=== PATIENT | female | born 1985 | race Caucasian/White ===

== ENCOUNTER 2019-03-07 18:48 | Emergency (ER) | payer OTHER ==
[~2019-03-07] VITALS: Ht 157.5 cm; Wt 70.5 kg
[2019-03-07 18:55] VITALS: Ht 157.5 cm; Wt 70.5 kg
[2019-03-07] MEDS ORDERED: LISINOPRIL-HCT1 EAC4 PO (18:56)
[2019-03-07] MEDS ORDERED: NORVASC5 MG PO (18:57)
[2019-03-07] MEDS ORDERED: LAMICTAL150 M1 PO (18:57)
[2019-03-07] MEDS ORDERED: EFFEXOR37.5 MG PO (18:57)
[2019-03-07] MEDS ORDERED: NEXIUM40 MG PO (18:58)
[2019-03-07] MEDS ORDERED: TRAZODONE HCL150 MG PO (18:58)
[2019-03-07 19:26] LABS: BASOPHILS 0.4 % (0-2); EOSINOPHILS 2.1 % (0-7); HEMATOCRIT 42.2 % (36.0-48.0); HEMOGLOBIN 14.4 g/dL (12-16); IMMATURE GRANULOCYTES 0.2 % (0-5); LYMPHOCYTES 31.6 % (15-50); MCH 36.6 pg (26.0-34.0); MCHC 34.1 g/dL (31.0-37.0); MCV 107.4 fL (80.0-100.0); MEAN PLATELET VOLUME 8.4 fL (7.4-10.4); MONOCYTES 5.3 % (2-11); NEUTROPHILS 60.4 % (40-80); PLATELET COUNT 382 10x3/uL (130-400); RBC 3.93 10x6/uL (4.00-5.40); RDW 15.1 % (11.5-14.5); WBC 12.6 10x3/uL (4.8-10.8)
[2019-03-07 19:34] LABS: APPEARANCE CLEAR (CLEAR); BILIRUBIN NEGATIVE (NEGATIVE); COLOR STRAW (YELLOW); GLUCOSE NEGATIVE (NEGATIVE); KETONE NEGATIVE (NEGATIVE); NITRITE NEGATIVE (NEGATIVE); PROTEIN NEGATIVE (NEGATIVE); UROBILINOGEN NORMAL (NORMAL)
[2019-03-07 19:35] LABS: UDS - AMPHET NEGATIVE QUAL (NEGATIVE); UDS - BARB NEGATIVE QUAL (NEGATIVE); UDS - BENZO NEGATIVE QUAL (NEGATIVE); UDS - COCAINE NEGATIVE QUAL (NEGATIVE); UDS - OPIATE NEGATIVE QUAL (NEGATIVE); UDS - PCP NEGATIVE QUAL (NEGATIVE); UDS - THC NEGATIVE QUAL (NEGATIVE)
[2019-03-07 19:37] LABS: BACTERIA FEW /hpf (NEGATIVE); EPITHELIAL CELLS 0-5 /hpf (0-5); RED CELLS - URINE 0-5 /hpf (0-5); WHITE CELLS - URINE NSEEN /hpf (NEGATIVE)
[2019-03-07 19:39] LABS: CALC OSMOLALITY 283 mosm/kg (275-300); CALCIUM 8.7 mg/dL (8.5-10.1); CARBON DIOXIDE 25.4 mmol/L (21.0-32.0); CHLORIDE - SERUM 104 mmol/L (98-107); CREATININE - SERUM 0.7 mg/dL (0.6-1.3); GLUCOSE 93 mg/dL (74-106); SODIUM 143 mmol/L (136-145); UREA NITROGEN 9 mg/dL (7-18); eGFR NON AFRICAN AMERICAN > 90 mL/min (90-120)
[2019-03-07 19:46] LABS: ALBUMIN 3.9 g/dL (3.4-5.0); ALKALINE PHOSPHATASE 62 U/L (30-120); ALT (SGPT) 33 U/L (10-68); BILIRUBIN - TOTAL 0.13 mg/dL (0.2-1.3); MAGNESIUM - SERUM 2.5 mg/dL (1.8-2.4)
--- NOTE | 2019-03-08 05:06 | NUR ---
DR VALDIVIA NOTIFIED AND REVIEWED PT's BEHAVIOR AND ASSESSMENT RESULTS. PT IS A LOW RISK PER DR VALDIVIA. DR VALDIVIA STATED TO GIVE RESOURCES TO PT AT TIME OF DISCHARGE. NO FURTHER ORDERS AT THIS TIME. RESOURCES REVIEWED WITH PT AND SHE VERBALIZED UNDERSTANDING.
[2019-03-08 06:42] VITALS: BP 130/77
== END 2019-03-08 06:44 ==
LOC: D.ER 18:48
PROVIDERS: Family Medicine
DX: F10.10 Alcohol abuse, uncomplicated (principal); Y90.8 Blood alcohol level of 240 mg/100 ml or more; F31.9 Bipolar disorder, unspecified; I10 Essential (primary) hypertension; F17.210 Nicotine dependence, cigarettes, uncomplicated

== ENCOUNTER 2019-03-22 14:30 | Inpatient (IN) | payer OTHER ==
[~2019-03-22] VITALS: Ht 157.5 cm; Wt 67.3 kg
[~2019-03-22 14:30] MED LIST: EFFEXOR37.5 MG PO; LAMICTAL150 M1 PO; LISINOPRIL-HCT1 EAC4 PO; NEXIUM40 MG PO; NORVASC5 MG PO; TRAZODONE HCL150 MG PO
[2019-04-09] MEDS ORDERED: PROAIR HFA8.5 G1 INH (13:12)
[2019-04-10 11:19] LABS: BASOPHILS 0.4 % (0-2); EOSINOPHILS 1.8 % (0-7); HEMATOCRIT 41.2 % (36.0-48.0); HEMOGLOBIN 14.1 g/dL (12-16); IMMATURE GRANULOCYTES 0.2 % (0-5); LYMPHOCYTES 35.1 % (15-50); MCH 35.5 pg (26.0-34.0); MCHC 34.2 g/dL (31.0-37.0); MCV 103.8 fL (80.0-100.0); MEAN PLATELET VOLUME 8.8 fL (7.4-10.4); MONOCYTES 5.6 % (2-11); NEUTROPHILS 56.9 % (40-80); PLATELET COUNT 332 10x3/uL (130-400); RBC 3.97 10x6/uL (4.00-5.40); RDW 12.7 % (11.5-14.5); WBC 10.5 10x3/uL (4.8-10.8)
[2019-04-10 11:27] LABS: CALC OSMOLALITY 274 mosm/kg (275-300); CALCIUM 9.6 mg/dL (8.5-10.1); CARBON DIOXIDE 26.5 mmol/L (21.0-32.0); CHLORIDE - SERUM 100 mmol/L (98-107); CREATININE - SERUM 0.8 mg/dL (0.6-1.3); GLUCOSE 97 mg/dL (74-106); POTASSIUM - SERUM 3.8 mmol/L (3.5-5.1); SODIUM 138 mmol/L (136-145); UREA NITROGEN 10 mg/dL (7-18); eGFR NON AFRICAN AMERICAN 89 mL/min (90-120)
[2019-04-10 11:28] LABS: APTT 25.2 SECONDS (22.8-39.4); INR 0.89 (0.85-1.17)
[2019-04-10 14:08] LABS: BILIRUBIN NEGATIVE (NEGATIVE); GLUCOSE NEGATIVE (NEGATIVE); KETONE NEGATIVE (NEGATIVE); NITRITE NEGATIVE (NEGATIVE); UROBILINOGEN NORMAL (NORMAL)
[2019-04-15] VITALS (12 sets, daily range): BP systolic 93–133; BP diastolic 49–71; Ht 157.5 cm; Wt 67.3 kg
[2019-04-15 10:11] LABS: HCG URINE NEGATIVE (NEGATIVE)
--- NOTE | 2019-04-15 10:30 | NUR ---
VOIDED 800CC CLEAR YELLOW URINE USING URINAL. DENIES NEEDS.
--- NOTE | 2019-04-15 13:38 | NUR ---
PT SITTING UP IN BED WITH HOB ELEVATED. ALERT AND ORIENTED. O2 AT 2L VIA NC. MOTHER AT BEDSIDE. PT STATES SHE HAS NO FURTHER NEEDS AT THIS TIME. VS STABLE. WILL CONTINUE TO MONITOR. BED LOW. CL IN REACH.
--- NOTE | 2019-04-15 16:09 | MORECARE ---
CASE MANAGEMENT DISCHARGE SUMMARY PATIENT: LORETTA NOLASCO UNIT: [id number] ADM DATE: 04/15/19 AGE: 33 : 87 SEX: F ROOM/BED: D.1212 AUTHOR: SOBIA DAVILA PHYSICIAN: REFERRING PHYSICIAN: BARON PETERS MD DATE OF SERVICE: 04/15/19 Discharge Plan Patient Name: LORETTA NOLASCO [facility] : 1985 Planned Disposition: Home Health Service Anticipated Discharge Date: 04/18/19 Discharge Date: Expected LOS: 3 Initial Reviewer: [email or web address] Initial Review Date: 04/15/2019 Generated: 04/15/19 5:08 pm DCPIA - Discharge Planning Initial Assessment Updated by [email or web address]: Essie Ovalle on 04/15/19 4:04 pm * Is the patient Alert and Oriented? Yes * How many steps to enter\exit or inside your home? None * PCP Dr. Stahl @ [facility] * Pharmacy [facility] * Preadmission Environment Home Alone * ADLs Independent * Equipment Bedside Commode Rolling Walker * Other Equipment CPM * List name and contact numbers for known caregivers / representatives who currently or will assist patient after discharge: Libia Weaver [facility] [phone] * Verbal permission to speak to the caregivers and representatives has been obtained from the patient. Yes * Community resources currently utilized None * Additional services required to return to the preadmission environment? Yes * Can the patient safely return to the preadmission environment? Yes * Has this patient been hospitalized within the prior 30 days at any hospital? No Patient Name: LORETTA NOLASCO Page [id number] at 1609 All edits/amendments must be made on the electronic document DICTATION DATE: 04/15/191607 TREER: ALANA 04/15/191607 RPT#: [id number] DC DATE: STATUS: ADM IN [facility] [address] [place] [address] END OF REPORT
--- NOTE | 2019-04-15 16:18 | MORECARE ---
CASE MANAGEMENT DISCHARGE SUMMARY PATIENT: LORETTA NOLASCO UNIT: [id number] ADM DATE: 04/15/19 AGE: 33 : 89 SEX: F ROOM/BED: D.1212 AUTHOR: GIOVANNI,DOC PHYSICIAN: REFERRING PHYSICIAN: BARON PETERS MD DATE OF SERVICE: 04/15/19 Discharge Plan Patient Name: LORETTA NOLASCO Facility: [facility]:[place] : 1985 Planned Disposition: Home Health Service Anticipated Discharge Date: 04/18/19 Discharge Date: Expected LOS: 3 Initial Reviewer: [email or web address] Initial Review Date: 04/15/2019 Generated: 04/15/19 5:18 pm Comments DCP- Discharge Planning Updated by [email or web address]: Essie Ovalle on 04/15/19 3:[address] DC PLAN: ANTICIPATED DC NEEDS: PROCEDURE: Right total knee arthroplasty CM met with patient and her mother to complete initial dc planning assessment. CM educated patient on the CM role and verbal consent given by patient to complete assessment. CM verified patient's address, phone number, and emergency contact phone numbers. Patient lives at home alone and was independent in her care prior to admission. CM discussed availability of home health, rehab services, and medical equipment. SHAYY form signed by patient for [facility]. Signed form placed in chart and signed form given to patient. She stated she used Cherelle in the past and would like to use them again. She does not have transportation to and from OP therapy at this time. At discharge patient plans to stay with her mother and feels this is a safe discharge. She reports she has received her walker, cpm, and bedside commode prior to admission. She reports that she did not receive the pads to the [facility]. CM notified Fanny at Dr. Peters's office informing her of this information. She will call and have the company contact patient's mother for deliver time. Transportation provider at discharge will be her mother. CM will continue to follow and will assist as needed with dc plans/needs. Essie Ovalle RN, [facility] DCPIA - Discharge Planning Initial Assessment Updated by [id number]: Essie Ovalle on 04/15/19 4:04 pm * Is the patient Alert and Oriented? Yes * How many steps to enter\exit or inside your home? None * PCP Dr. Stahl @ [facility] * Pharmacy [facility] * Preadmission Environment Home Alone * ADLs Independent * Equipment Bedside Commode Rolling Walker * Other Equipment CPM * List name and contact numbers for known caregivers / representatives who currently or will assist patient after discharge: Libia tao - [phone] * Verbal permission to speak to the caregivers and representatives has been obtained from the patient. Yes * Community resources currently utilized None * Additional services required to return to the preadmission environment? Yes * Can the patient safely return to the preadmission environment? Yes * Has this patient been hospitalized within the prior 30 days at any hospital? No External Providers External Provider: [facility] Contact Date: Service Request Date: Service Type: Resolution: Reviewer: Comments: Last DP export: 04/15/19 3:09 pm Patient Name: LORETTA NOLASCO Page [id number] at 1618 All edits/amendments must be made on the electronic document DICTATION DATE: 04/15/19 1618 TANK INSULATOR RUBBER: ALANA 04/15/19 1618 RPT#: [id number] DC DATE: STATUS: ADM IN [facility] [address] [place] [address] END OF REPORT
--- NOTE | 2019-04-15 16:21 | NUR ---
USED BED DANIEL WITH FAMILY'S ASSISTANCE. REPORTED A LARGE VOLUMN OF CLEAR YELLOW URINE. "ONE BEDPAN FULL AND PART OF ANOTHER". DENIES NEEDS.
--- NOTE | 2019-04-15 16:27 | MORECARE ---
CASE MANAGEMENT DISCHARGE SUMMARY PATIENT: LORETTA NOLASCO UNIT: [id number] ADM DATE: 04/15/19 AGE: 33 : 87 SEX: F ROOM/BED: D.1212 AUTHOR: GIOVANNI,DOC PHYSICIAN: REFERRING PHYSICIAN: BARON PETERS MD DATE OF SERVICE: 04/15/19 Discharge Plan Patient Name: LORETTA NOLASCO Facility: [facility]:[place] : 1985 Planned Disposition: Home Health Service Anticipated Discharge Date: 04/18/19 Discharge Date: Expected LOS: 3 Initial Reviewer: [email or web address] Initial Review Date: 04/15/2019 Generated: 04/15/19 5:26 pm Comments DCP- Discharge Planning Updated by [email or web address]: Essie Ovalle on 04/15/19 3:[address] DC PLAN: ANTICIPATED DC NEEDS: PROCEDURE: Right total knee arthroplasty CM met with patient and her mother to complete initial dc planning assessment. CM educated patient on the CM role and verbal consent given by patient to complete assessment. CM verified patient's address, phone number, and emergency contact phone numbers. Patient lives at home alone and was independent in her care prior to admission. CM discussed availability of home health, rehab services, and medical equipment. SHAYY form signed by patient for [facility]. Signed form placed in chart and signed form given to patient. She stated she used Cherelle in the past and would like to use them again. She does not have transportation to and from OP therapy at this time. At discharge patient plans to stay with her mother and feels this is a safe discharge. She reports she has received her walker, cpm, and bedside commode prior to admission. She reports that she did not receive the pads to the [facility]. CM notified Fanny at Dr. Peters's office informing her of this information. She will call and have the company contact patient's mother for deliver time. Transportation provider at discharge will be her mother. CM will continue to follow and will assist as needed with dc plans/needs. Essie Ovalle RN, [facility] DCPIA - Discharge Planning Initial Assessment Updated by [id number]: Essie Ovalle on 04/15/19 4:04 pm * Is the patient Alert and Oriented? Yes * How many steps to enter\exit or inside your home? None * PCP Dr. Stahl @ [facility] * Pharmacy [facility] * Preadmission Environment Home Alone * ADLs Independent * Equipment Bedside Commode Rolling Walker * Other Equipment CPM * List name and contact numbers for known caregivers / representatives who currently or will assist patient after discharge: Libia tao - [phone] * Verbal permission to speak to the caregivers and representatives has been obtained from the patient. Yes * Community resources currently utilized None * Additional services required to return to the preadmission environment? Yes * Can the patient safely return to the preadmission environment? Yes * Has this patient been hospitalized within the prior 30 days at any hospital? No Last DP export: 04/15/19 3:18 pm Patient Name: LORETTA NOLASCO Page [id number] at 1626 All edits/amendments must be made on the electronic document DICTATION DATE: 04/15/191625 QUALITY CONTROL EXPERT: ALANA 04/15/191625 RPT#: [id number] DC DATE: STATUS: ADM IN [facility] [address] [place] [address] END OF REPORT
--- NOTE | 2019-04-15 16:34 | MORECARE ---
CASE MANAGEMENT DISCHARGE SUMMARY PATIENT: LORETTA NOLASCO UNIT: [id number] ADM DATE: 04/15/19 AGE: 33 : 89 SEX: F ROOM/BED: D.1212 AUTHOR: GIOVANNI,DOC PHYSICIAN: REFERRING PHYSICIAN: BARON PETERS MD DATE OF SERVICE: 04/15/19 Discharge Plan Patient Name: LORETTA NOLASCO Facility: [facility]:[place] : 1985 Planned Disposition: Home Health Service Anticipated Discharge Date: 04/18/19 Discharge Date: Expected LOS: 3 Initial Reviewer: [email or web address] Initial Review Date: 04/15/2019 Generated: 04/15/19 5:34 pm Comments DCP- Discharge Planning Updated by [email or web address]: Essie Ovalle on 04/15/19 3:[address] DC PLAN: ANTICIPATED DC NEEDS: PROCEDURE: Right total knee arthroplasty CM met with patient and her mother to complete initial dc planning assessment. CM educated patient on the CM role and verbal consent given by patient to complete assessment. CM verified patient's address, phone number, and emergency contact phone numbers. Patient lives at home alone and was independent in her care prior to admission. CM discussed availability of home health, rehab services, and medical equipment. SHAYY form signed by patient for [employer] [facility]. Signed form placed in chart and signed form given to patient. She stated she used Cherelle in the past and would like to use them again. She does not have transportation to and from OP therapy at this time. At discharge patient plans to stay with her mother and feels this is a safe discharge. She reports she has received her walker, cpm, and bedside commode prior to admission. She reports that she did not receive the pads to the [facility]. CM notified Fanny at Dr. Peters's office informing her of this information. She will call and have the company contact patient's mother for deliver time. Transportation provider at discharge will be her mother. CM will continue to follow and will assist as needed with dc plans/needs. Essie Ovalle RN, CCM Appended by Essie Ovalle on 04/15/2019 16:28 CDT: Spoke to Tonie @ [facility] regarding referral. She stated it would be tomorrow before she could review the referral and give us an answer. CM to fax PT eval once completed. DCPIA - Discharge Planning Initial Assessment Updated by [id number]: Essie Ovalle on 04/15/19 4:04 pm * Is the patient Alert and Oriented? Yes * How many steps to enter\exit or inside your home? None * PCP Dr. Stahl @ [facility] * Pharmacy [facility] * Preadmission Environment Home Alone * ADLs Independent * Equipment Bedside Commode Rolling Walker * Other Equipment CPM * List name and contact numbers for known caregivers / representatives who currently or will assist patient after discharge: Libia tao - [phone] * Verbal permission to speak to the caregivers and representatives has been obtained from the patient. Yes * Community resources currently utilized None * Additional services required to return to the preadmission environment? Yes * Can the patient safely return to the preadmission environment? Yes * Has this patient been hospitalized within the prior 30 days at any hospital? No Coverage Notice Reviewer: [id number] - Essie Ovalle Notice Issued Date-Time: 04/15/2019 16:28 Notice Type: Patient Choice Letter Notice Delivered To: Patient Relationship to Patient: Web Development Consultant Name: Delivery Method: - Natalya Days: Prior Verbal Notification: Recipient Understood Notice: Yes Recipient Signature: Yes Med Rec Note Co-signed by Attending: Coverage Notice Comment: [facility] Last DP export: 04/15/19 3:26 pm Patient Name: LORETTA NOLASCO Page [id number] at 1634 All edits/amendments must be made on the electronic document DICTATION DATE: 04/15/19 163 JAVA APPLICATION DEVELOPER: ALANA 04/15/19 1634 RPT#: [id number] DC DATE: STATUS: ADM IN [facility] [address] [place] [address] END OF REPORT
--- NOTE | 2019-04-15 17:45 | NUR ---
PT PLACED ON CPM. PT STATES SHE HAS NO FURTHER NEEDS AT THIS TIME. MOTHER AT BEDSIDE. BED LOW. CL IN REACH. WILL CONTINUE TO MONITOR.
--- NOTE | 2019-04-15 19:58 | NUR ---
PATIENT RESTING IN BED WITH NO S/S OF DISTRESS. PATIENT STATED SHE IS A 1/2 PACK A DAY SMOKER AND REQUESTED A NICOTINE PATCH.
--- NOTE | 2019-04-15 21:00 | NUR ---
REMOVED PATIENT FROM CPM MACHINE
[2019-04-16 01:00] VITALS: BP 94/52
[2019-04-16 04:45] VITALS: BP 90/48
--- NOTE | 2019-04-16 05:20 | NUR ---
PLACED PATIENT ON CPM TO RIGHT KNEE
[2019-04-16 06:20] LABS: HEMATOCRIT 31.3 % (36.0-48.0); HEMOGLOBIN 10.6 g/dL (12-16); MCH 35.2 pg (26.0-34.0); MCHC 33.9 g/dL (31.0-37.0); MEAN PLATELET VOLUME 9.2 fL (7.4-10.4); RBC 3.01 10x6/uL (4.00-5.40); RDW 13.1 % (11.5-14.5); WBC 11.8 10x3/uL (4.8-10.8)
[2019-04-16 07:26] VITALS: BP 100/60
--- NOTE | 2019-04-16 07:46 | NUR ---
AWAKE AND ALERT. ORIENTED X3. NO C/O AT THIS TIME. LUNGS ARE CLEAR BILATERALLY, NO COUGH NOTED. REPORTS USING IS INSTRUCTED. SKIN IS INTACT WTIHOUT REDNESS EXCEPT INCISION TO RIGHT KNEE WHICH HAS A DRY INTACT DRESSING IN PLACE. DENIES NEEDS.
--- NOTE | 2019-04-16 09:14 | NUR ---
REQUESTED AND GIVNE ONE PERCOCET PO FOR C/O RIGHT KNEE PAINLEVEL 4. WILL MONITOR. ATE ALL OF BREAKFAST. TOOK AM MEDS WITHOUT DIFFICULTY.
--- NOTE | 2019-04-16 09:43 | NUR ---
AMBULATED IN HALLWAY WITH PT AND RW. DID WELL, NO C/O INCREASED PAIN WITH ACTIVITY.
--- NOTE | 2019-04-16 10:49 | NUR ---
UP TO BR WITH MIN ASSIST OF ONE. VOIDED CLEAR YELLOW URINE WITHOUT DIFFICULTY. REPOSITIONED IN CHAIR AT BEDSIDE. DENIES NEEDS.
--- NOTE | 2019-04-16 13:15 | NUR ---
REQUESTED AND GIVEN ONE PERCOCET PO FOR C/O RIGHT KNEE PAIN LEVEL 5. WILL MONITOR.
[2019-04-16] MEDS ORDERED: PERCOCET 10-321 EAC1 PO (13:17)
[2019-04-16] MEDS ORDERED: ELIQUIS2.5 MG PO (13:17)
--- NOTE | 2019-04-16 14:37 | MORECARE ---
CASE MANAGEMENT DISCHARGE SUMMARY PATIENT: LORETTA NOLASCO UNIT: [id number] ADM DATE: 04/15/19 AGE: 33 : 89 SEX: F ROOM/BED: D.1212 AUTHOR: GIOVANNI,DOC PHYSICIAN: REFERRING PHYSICIAN: BARON PETERS MD DATE OF SERVICE: 04/16/19 Discharge Plan Patient Name: LORETTA NOLASCO Facility: [facility]:[place] : 1985 Planned Disposition: Home Health Service Anticipated Discharge Date: 04/18/19 Discharge Date: Expected LOS: 3 Initial Reviewer: [email or web address] Initial Review Date: 04/15/2019 Generated: 04/16/19 3:37 pm Comments DCP- Discharge Planning Updated by [id number]: Claudia Cervantes on 04/16/19 1:[address] CM contacted Rabia with [place] [facility] @[phone], regarding patient'sDC today. Per Rabia, will contact patient or her mother and arrange to see patient with-in 48 hours, possibly tomorrow. CM faxed H/P, Progress notes, DC order with instructions. DCP- Discharge Planning Updated by [id number]: Essie Ovalle on 04/15/19 3:[address] DC PLAN: ANTICIPATED DC NEEDS: PROCEDURE: Right total knee arthroplasty CM met with patient and her mother to complete initial dc planning assessment. CM educated patient on the CM role and verbal consent given by patient to complete assessment. CM verified patient's address, phone number, and emergency contact phone numbers. Patient lives at home alone and was independent in her care prior to admission. CM discussed availability of home health, rehab services, and medical equipment. SHAYY form signed by patient for [email or web address]. Signed form placed in chart and signed form given to patient. She stated she used Cherelle in the past and would like to use them again. She does not have transportation to and from OP therapy at this time. At discharge patient plans to stay with her mother and feels this is a safe discharge. She reports she has received her walker, cpm, and bedside commode prior to admission. She reports that she did not receive the pads to the [facility]. CM notified Fanny at Dr. Peters's office informing her of this information. She will call and have the company contact patient's mother for deliver time. Transportation provider at discharge will be her mother. CM will continue to follow and will assist as needed with dc plans/needs. Essie Ovalle RN, CCM Appended by Essie Ovalle on 04/15/2019 16:28 CDT: Spoke to Tonie @ [facility] regarding referral. She stated it would be tomorrow before she could review the referral and give us an answer. CM to fax PT eval once completed. DCPIA - Discharge Planning Initial Assessment Updated by [email or web address]: Essie Ovalle on 04/15/19 4:04 pm * Is the patient Alert and Oriented? Yes * How many steps to enter\exit or inside your home? None * PCP Dr. Stahl @ [facility] * Pharmacy [facility] * Preadmission Environment Home Alone * ADLs Independent * Equipment Bedside Commode Rolling Walker * Other Equipment CPM * List name and contact numbers for known caregivers / representatives who currently or will assist patient after discharge: Libia Weaver - mother - [phone] * Verbal permission to speak to the caregivers and representatives has been obtained from the patient. Yes * Community resources currently utilized None * Additional services required to return to the preadmission environment? Yes * Can the patient safely return to the preadmission environment? Yes * Has this patient been hospitalized within the prior 30 days at any hospital? No Coverage Notice Reviewer: [id number] - Essie Ovalle Notice Issued Date-Time: 04/15/2019 16:28 Notice Type: Patient Choice Letter Notice Delivered To: Patient Relationship to Patient: Rehabilitation Engineer Name: Delivery Method: - Natalya Days: Prior Verbal Notification: Recipient Understood Notice: Yes Recipient Signature: Yes Med Rec Note Co-signed by Attending: Coverage Notice Comment: [facility] Last DP export: 04/15/19 3:34 pm Patient Name: LORETTA NOLASCO Page [id number] at 1437 All edits/amendments must be made on the electronic document DICTATION DATE: 04/16/19 1437 WOOD HEEL FLAP RUBBER: ALANA 04/16/19 1437 RPT#: [id number] DC DATE: STATUS: ADM IN [facility] [address] [place] [address] END OF REPORT
--- NOTE | 2019-04-16 16:30 | NUR ---
DRESSING CHANGED TO RIGHT KNEE. INCISION IS CLEAN DRY AND INTACT WITH CLIPS IN PLACE. NADEEM SENT WITH PATIENT FOR DRESSING CHANGE.
--- NOTE | 2019-04-16 18:45 | NUR ---
PATIENT DISCHARGED TO HOME WITH FAMILY. DISCHARGE INSTRUCTIONS GIVEN BOTH VERBALLY AND WRITTEN. ALL QUESTIONS ANSWERED. PATIENT VERBALIZED UNDERSTANDING OF SAME. SL TO LEFT HAND D/C WITH CATHETER INTACT. WAITING ON RIDE TO DISCHARGE.
--- NOTE | 2019-04-16 19:15 | NUR ---
TOOK PATIENT OUT VIA WHEELCHAIR. FAMILY WAITING. PATIENT HAD NO S/S OF DISTRESS WHEN DISCHARGED.
--- NOTE | 2019-04-17 18:07 | MORECARE ---
CASE MANAGEMENT DISCHARGE SUMMARY PATIENT: LORETTA NOLASCO UNIT: [id number] ADM DATE: 04/15/19 AGE: 33 : 89 SEX: F ROOM/BED: D.1212 AUTHOR: GIOVANNI,DOC PHYSICIAN: REFERRING PHYSICIAN: BARON PETERS MD DATE OF SERVICE: 04/17/19 Discharge Plan Patient Name: LORETTA NOLASCO Facility: [facility]:[place] : 1985 Planned Disposition: Home Health Service Anticipated Discharge Date: 04/16/19 Discharge Date: 04/16/2019 Expected LOS: 1 Initial Reviewer: [email or web address] Initial Review Date: 04/15/2019 Generated: 04/17/19 7:06 pm Comments DCP- Discharge Planning Updated by [id number]: Claudia Cervantes on 04/16/19 1:[address] CM contacted Rabia with [employer] [facility] @[phone], regarding patient'sDC today. Per Rabia, HH will contact patient or her mother and arrange to see patient with-in 48 hours, possibly tomorrow. CM faxed H/P, Progress notes, DC order with instructions. DCP- Discharge Planning Updated by [email or web address]: Essie Ovalle on 04/15/19 3:[address] DC PLAN: ANTICIPATED DC NEEDS: PROCEDURE: Right total knee arthroplasty CM met with patient and her mother to complete initial dc planning assessment. CM educated patient on the CM role and verbal consent given by patient to complete assessment. CM verified patient's address, phone number, and emergency contact phone numbers. Patient lives at home alone and was independent in her care prior to admission. CM discussed availability of home health, rehab services, and medical equipment. SHAYY form signed by patient for [employer]. Signed form placed in chart and signed form given to patient. She stated she used Cherelle in the past and would like to use them again. She does not have transportation to and from OP therapy at this time. At discharge patient plans to stay with her mother and feels this is a safe discharge. She reports she has received her walker, cpm, and bedside commode prior to admission. She reports that she did not receive the pads to the [facility]. CM notified Fanny at Dr. Peters's office informing her of this information. She will call and have the company contact patient's mother for deliver time. Transportation provider at discharge will be her mother. CM will continue to follow and will assist as needed with dc plans/needs. Essie Ovalle RN, CCM Appended by Essie Ovalle on 04/15/2019 16:28 CDT: Spoke to Tonie @ [facility] regarding referral. She stated it would be tomorrow before she could review the referral and give us an answer. CM to fax PT eval once completed. DCPIA - Discharge Planning Initial Assessment Updated by [email or web address]: Essie Ovalle on 04/15/19 4:04 pm * Is the patient Alert and Oriented? Yes * How many steps to enter\exit or inside your home? None * PCP Dr. Stahl @ [facility] * Pharmacy [facility] * Preadmission Environment Home Alone * ADLs Independent * Equipment Bedside Commode Rolling Walker * Other Equipment CPM * List name and contact numbers for known caregivers / representatives who currently or will assist patient after discharge: Libia Weaver - mother - [phone] * Verbal permission to speak to the caregivers and representatives has been obtained from the patient. Yes * Community resources currently utilized None * Additional services required to return to the preadmission environment? Yes * Can the patient safely return to the preadmission environment? Yes * Has this patient been hospitalized within the prior 30 days at any hospital? No Coverage Notice Reviewer: [id number] - Essie Ovalle Notice Issued Date-Time: 04/15/2019 16:28 Notice Type: Patient Choice Letter Notice Delivered To: Patient Relationship to Patient: Shellfish Grower Name: Delivery Method: - Natalya Days: Prior Verbal Notification: Recipient Understood Notice: Yes Recipient Signature: Yes Med Rec Note Co-signed by Attending: Coverage Notice Comment: [facility] Last DP export: 04/16/19 1:37 p Patient Name: LORETTA NOLASCO Page 42206 at 1807 All edits/amendments must be made on the electronic document DICTATION DATE: 04/17/191805 TIRE MANAGER: ALANA 04/17/191805 RPT#: [id number] DC DATE:04/16/19 STATUS: DIS IN [facility] [address] [place] [address] END OF REPORT
== END 2019-04-16 18:45 | disposition home health service (06) | DRG 465 ==
LOC: D.SDCHOLD 04-10 10:00 → D.M3 04-15 07:35 → D.SDCHOLD 04-15 07:35 → D.M3 04-15 11:57
PROVIDERS: Anesthesiology; ADMIT Orthopaedic Surgery; ATTEND Orthopaedic Surgery
PROC: 0SPC0NZ Removal of Patellofemoral Synthetic Substitute from Right Knee Joint, Open Approach (ICD-10-PCS; principal; 2019-04-15 09:45)
PROC: 0SRC0NZ Replacement of Right Knee Joint with Patellofemoral Synthetic Substitute, Open Approach (ICD-10-PCS; 2019-04-15 09:45)
DX: T84.032A Mechanical loosening of internal right knee prosthetic joint, initial encounter (principal); X58.XXXA Exposure to other specified factors, initial encounter; T84.84XA Pain due to internal orthopedic prosthetic devices, implants and grafts, initial encounter